=== PATIENT | female | born 1970 | race Caucasian/White ===

== ENCOUNTER 2017-02-08 17:27 | Emergency (ER) | payer OTHER ==
[2017-02-08 17:34] VITALS: BP 155/98; PULSE 68; TEMP 98.2; BMI 38.2
--- NOTE | 2017-02-08 19:31 | PDOC ---
History of Present Illness - General History Source: Patient Exam Limitations: No Limitations - History of Present Illness Initial Comments: 02/08/17 19:46 Patient is a 46 year old female, M1, with a pmhx hypothyroid, kidney stones and GERD who presents to the ED with right flank pain. Patient states that she has been experiencing lower back pain and nausea. Patient states that she had abnormal menses this month, she notes that it began on 02/05 and ended . She notes that it is unusual for her, and she usually has heavy menses. She notes that her last normal menstrual period was 6.19. She denies any urinary symptoms. She denies any vomiting or abdominal pain. PSH - right leg surgery PCP - is not in the area she recently moved from [place] on [address]. <Riana Blair - Last Filed: 02/08/17 19:46> <Virginia Okeefe - Last Filed: 02/09/17 05:05> - General Chief Complaint: Pain, Acute Stated Complaint: NAUSEA Past History <Riana Blair - Last Filed: 02/08/17 19:46> - Past Medical History Kidney Stones: Yes Thyroid Disease: Yes - Psycho/Social/Smoking Cessation Hx Anxiety: No Suicidal Ideation: No Smoking History: Never smoked Hx Alcohol Use: No Drug/Substance Use Hx: No Substance Use Type: None <Virginia Okeefe - Last Filed: 02/09/17 05:05> - Past Medical History Allergies/Adverse Reactions: Allergies Allergy/AdvReac Type Severity Reaction Status Date / Time aspirin Allergy Vomiting Verified 02/08/17 18:04 Home Medications: Ambulatory Orders Cholecalciferol (Vitamin D3) [Vitamin D-400] 400 unit PO DAILY 02/08/17 Levothyroxine [Synthroid -] 150 mcg PO DAILY 02/08/17 Nitrofurantoin Monohyd/M-Cryst [Macrobid -] 100 mg PO BID #14 capsule 02/08/17 Omeprazole Magnesium [Prilosec] 10 mg PO DAILY 02/08/17 Review of Systems - Review of Systems Able to Perform ROS?: Yes Comments:: 02/08/17 19:47 GENERAL/CONSTITUTIONAL: No fever or chills. No weakness. HEAD, EYES, EARS, NOSE AND THROAT: No change in vision. No ear pain or discharge. No sore throat. CARDIOVASCULAR: No chest pain or shortness of breath. RESPIRATORY: No cough, wheezing, or hemoptysis. GASTROINTESTINAL: (+)nausea. No vomiting, diarrhea or constipation. GENITOURINARY: No dysuria, frequency, or change in urination. MUSCULOSKELETAL:(+) right flank pain, back pain. No joint or muscle swelling or pain. No neck pain. SKIN: No rash NEUROLOGIC: No headache, vertigo, loss of consciousness, or change in strength/ sensation. ENDOCRINE: No increased thirst. No abnormal weight change. HEMATOLOGIC/LYMPHATIC: No anemia, easy bleeding, or history of blood clots. ALLERGIC/IMMUNOLOGIC: No hives or skin allergy. <Riana Blair - Last Filed: 02/08/17 19:46> *Physical Exam - Vital Signs Last Vital Signs Temp Pulse Resp BP Pulse Ox 98.2 F 68 20 155/98 100 02/08/17 17:30 02/08/17 17:30 02/08/17 17:30 02/08/17 17:30 02/08/17 17:30 - Physical Exam Comments: 02/08/17 19:47 GENERAL: Awake, alert, and fully oriented, in no acute distress HEAD: No signs of trauma EYES: PERRLA, EOMI, sclera anicteric, conjunctiva clear ENT: Auricles normal inspection, hearing grossly normal, nares patent, oropharynx clear without exudates. Moist mucosa NECK: Normal ROM, supple, no lymphadenopathy, JVD, or masses LUNGS: Breath sounds equal, clear to auscultation bilaterally. No wheezes, and no crackles HEART: Regular rate and rhythm, normal S1 and S2, no murmurs, rubs or gallops ABDOMEN: Soft, nontender, normoactive bowel sounds. No guarding, no rebound. No masses MUSCULOSKELETAL: no CVA tenderness. EXTREMITIES: Normal range of motion, no edema. No clubbing or cyanosis. No cords, erythema, or tenderness NEUROLOGICAL: Cranial nerves II through XII grossly intact. Normal speech, normal gait SKIN: Warm, Dry, normal turgor, no rashes or lesions noted. <Riana Blair - Last Filed: 02/08/17 19:46> - Vital Signs Last Vital Signs Temp Pulse Resp BP Pulse Ox 98.2 F 68 20 155/98 100 02/08/17 17:30 02/08/17 17:30 02/08/17 17:30 02/08/17 17:30 02/08/17 17:30 <Virginia Okeefe - Last Filed: 02/09/17 05:05> Medical Decision Making - Medical Decision Making 02/08/17 19:41 Pt comes with irregular period that lasted from Friday until today. She states usually she has very heavy menses and she wonders what is wrong at this time. She is . She recently moved to [place] from [place] for her boyfriend. Pt tells me that she has a hx of a kidney stone on the right side and that she is having right flank pain and she is wondering if that has anything to do with her irregular menses. We will check a UA and a test. Pt's exam is completely normal. I cannot elicit flank pain on her right side.Pt is afebrile and she denies dysuria. 02/08/17 22:36 Patient Name: Adelaide Serna THIS IS A PRELIMINARY REPORT FROM [facility] IMAGES: 468 EXAM DATE AND TIME: 2017-02-08 21:28:03.0 EXAM: CT ABDOMEN AND PELVIS WITHOUT CONTRAST 4.1 cm bilobed right ovarian cyst. No nephrolithiasis , ureterolithiasis or obstructive uropathy. No bladder calculi. Unremarkable pancreas and gallbladder. No bowel obstruction, colitis, diverticulitis, free fluid or free air. Probable normal appendix. Minimal splenomegaly. Borderline hepatomegaly. Small bone islands bilateral iliac bones. THIS DOCUMENT HAS BEEN ELECTRONICALLY SIGNED 02/09/17 05:04 Patient Name: Adelaide Serna THIS IS A PRELIMINARY REPORT FROM [facility] IMAGES: 64 EXAM DATE AND TIME: 2017-02-08 23:26:48.0 EXAM: ULTRASOUND PELVIS, COMPLETE AND TRANSVAGINAL ULTRASOUND AND DUPLEX SCAN PELVIS, COMPLETE No ovarian torsion. Color flow with appropriate arterial and venous waveforms. Ill -defined heterogeneous dominant follicle or small cyst right ovary, measurements not provided. No free fluid. 2.4 cm uterine fibroid. Endometrial stripe complex 10 mm thick. Unremarkable visualized portion of bladder. THIS DOCUMENT HAS BEEN ELECTRONICALLY SIGNED PT WILL BE DISCHARGED HOME WITH CAMPUS RECRUITER FOLLOW UP FOR OVARIAN CYST. SHE UNDERSTANDS RISK FACTORS FOR OVARIAN TORSION. <Virginia Okeefe - Last Filed: 02/09/17 05:05> *DC/Admit/Observation/Transfer - Attestations Scribe Attestion: 02/08/17 19:49 Documentation prepared by JOBY Mccarthy, acting as director of medical services for Virginia Okeefe MD. <Riana Blair - Last Filed: 02/08/17 19:46> - Discharge Dispostion Admit: No <Virginia Okeefe - Last Filed: 02/09/17 05:05> Diagnosis at time of Disposition: Ovarian cyst - Discharge Dispostion Disposition: HOME Condition at time of disposition: Stable - Prescriptions Prescriptions: Nitrofurantoin Monohyd/M-Cryst [Macrobid -] 100 mg PO BID #14 capsule - Patient Instructions Printed Discharge Instructions: Ovarian Cyst
[2017-02-08 20:01] LABS: URINE APPEARANCE CLEAR; URINE BILIRUBIN NEGATIVE (NEGATIVE); URINE BLOOD 2+ (NEGATIVE); URINE COLOR LTYELLOW; URINE GLUCOSE (UA) NEGATIVE (NEGATIVE); URINE KETONE NEGATIVE (NEGATIVE); URINE LEUK ESTERASE NEGATIVE (NEGATIVE); URINE NITRITE NEGATIVE (NEGATIVE); URINE PROTEIN NEGATIVE (NEGATIVE); URINE UROBILINOGEN NEGATIVE mg/dL (0.2-1.0)
[2017-02-08 20:23] LABS: URINE RBC 1 /hpf (0-3); URINE WBC 1 /hpf (3-5)
[2017-02-08] MEDS ORDERED: NITROFURANTOIN MACROCRYSTAL 50 MG CAPSULE (FP) PO SCH (22:45)
== END 2017-02-09 01:22 | disposition home or self-care (01) ==
LOC: JER 17:27
DX: N83.201 Unspecified ovarian cyst, right side (principal); K21.9 Gastro-esophageal reflux disease without esophagitis; E03.9 Hypothyroidism, unspecified; Z87.442 Personal history of urinary calculi
CPT/HCPCS: 74176; 76856-TC; 81003; 81015; 84703; 99283-25

== ENCOUNTER 2017-04-04 14:15 | Emergency (ER) | payer OTHER ==
[2017-04-04] MEDS ORDERED: IBUPROFEN 600 MG TABLET (FP) PO ONE ×2 (14:45→16:04)
[2017-04-04 14:51] VITALS: BP 154/89; PULSE 85; TEMP 97.9; BMI 38.2
--- NOTE | 2017-04-04 15:13 | PDOC ---
History of Present Illness - General History Source: Patient Exam Limitations: No Limitations - History of Present Illness Initial Comments: 04/04/17 15:27 The patient is a 46 year old female, with a significant past medical history of kidney stones, hypothyroidism, ovarian cysts, and anemia, who presents to the emergency department s/p mechanical fall prior to arrival. The patient reports she was walking on gravel, when she lost her balance, fell and landed with her left hand outstretched. Just prior to the fall, patient reports twisting her right arm, while holding onto her partner in attempt to break the fall. Patient reports associated right elbow pain and mild left knee pain. Patient reports her elbow pain is worse with movement. Patient reports she has been ambulatory since the fall. She reports some abrasions and ecchymosis to the left leg and right elbow. Patient has not taken anything for the pain. She denies any head trauma, LOC, changes in vision, headache, neck/back/wrist/ or shoulder pain. She denies any domestic violence. She denies any chest pain, shortness of breath , diaphoresis, or palpitations. Allergies: NKDA Past Surgical History: None reported. Social History: Non smoker. No ETOH or recreational drug use. <Corrie Jefferson - Last Filed: 04/04/17 15:27> - General History Source: Patient Exam Limitations: No Limitations <Mary Kate Torres - Last Filed: 04/04/17 16:06> - General Chief Complaint: Injury Stated Complaint: FALL Time Seen by Provider: 04/04/17 14:18 Past History <Corrie Jefferson - Last Filed: 04/04/17 15:27> - Past Medical History Anemia: Yes HTN: Yes Kidney Stones: Yes Thyroid Disease: Yes - Suicide/Smoking/Psychosocial Hx Smoking History: Never smoked Have you smoked in the past 12 months: No Information on smoking cessation initiated: No Hx Alcohol Use: No Drug/Substance Use Hx: No Substance Use Type: None <Mary Kate Torres - Last Filed: 04/04/17 16:06> - Past Medical History Allergies/Adverse Reactions: Allergies Allergy/AdvReac Type Severity Reaction Status Date / Time aspirin Allergy Vomiting Verified 04/04/17 14:26 Home Medications: Ambulatory Orders Cholecalciferol (Vitamin D3) [Vitamin D-400] 400 unit PO DAILY 02/08/17 Levothyroxine [Synthroid -] 150 mcg PO DAILY 02/08/17 Omeprazole Magnesium [Prilosec] 10 mg PO DAILY 02/08/17 Ibuprofen [Motrin -] 600 mg PO TID PRN #60 tablet MDD 3 04/04/17 Review of Systems - Review of Systems Able to Perform ROS?: Yes Comments:: 04/04/17 15:27 GENERAL/CONSTITUTIONAL: No fever or chills. No weakness. HEAD, EYES, EARS, NOSE AND THROAT: No change in vision. No ear pain or discharge. No sore throat. CARDIOVASCULAR: No chest pain or shortness of breath. RESPIRATORY: No cough, wheezing, or hemoptysis. GASTROINTESTINAL: No nausea, vomiting, diarrhea or constipation. GENITOURINARY: No dysuria, frequency, or change in urination. MUSCULOSKELETAL: Yes: right elbow pain, left knee pain, abrasion and ecchymosis to the left knee/ right elbow. No other joint or muscle swelling or pain. No neck or back pain. SKIN: No rash NEUROLOGIC: No headache, vertigo, loss of consciousness, or change in strength/ sensation. ENDOCRINE: No increased thirst. No abnormal weight change. HEMATOLOGIC/LYMPHATIC: No anemia, easy bleeding, or history of blood clots. ALLERGIC/IMMUNOLOGIC: No hives or skin allergy. <Corrie Jefferson - Last Filed: 04/04/17 15:27> *Physical Exam - Vital Signs Last Vital Signs Temp Pulse Resp BP Pulse Ox 97.9 F 85 18 154/89 100 04/04/17 14:20 04/04/17 14:20 04/04/17 14:20 04/04/17 14:20 04/04/17 14:20 - Physical Exam Comments: 04/04/17 15:27 GENERAL: Awake, alert, and fully oriented, in no acute distress HEAD: No signs of trauma EYES: PERRLA, EOMI, sclera anicteric, conjunctiva clear ENT: Auricles normal inspection, hearing grossly normal, nares patent. Moist mucosa NECK: Normal ROM, supple, no lymphadenopathy, JVD, or masses LUNGS: Breath sounds equal, clear to auscultation bilaterally. No wheezes, and no crackles HEART: Regular rate and rhythm, normal S1 and S2, no murmurs, rubs or gallops ABDOMEN: Soft, nontender, normoactive bowel sounds. No guarding, no rebound. No masses EXTREMITIES: RUE: right shoulder/wrist FROM, non tender. Right lateral elbow tenderness, but FROM with flex/ex, no laxity. Left knee mild ttp on the anterior knee, but FROM, no ecchymosis, no effusion, no abrasion. Remainder of the extremities normal range of motion, no edema. No clubbing or cyanosis. No cords, erythema, or tenderness. DP/PT pulses 2+ and symmetric. NEUROLOGICAL: GCS 15. Moves all extremities. Normal speech, normal gait SKIN: Warm, Dry, normal turgor, no rashes or lesions noted. VASCULAR: 2+ radial and ulnar pulses <Corrie Jefferson - Last Filed: 04/04/17 15:27> - Vital Signs Last Vital Signs Temp Pulse Resp BP Pulse Ox 97.9 F 85 18 154/89 100 04/04/17 14:20 04/04/17 14:20 04/04/17 14:20 04/04/17 14:20 04/04/17 14:20 <Mary Kate Torres - Last Filed: 04/04/17 16:06> ED Treatment Course - RADIOLOGY Radiology Studies Ordered: Category Date Time Status ELBOW-RIGHT [RAD] Stat Radiology 04/04/17 14:40 Ordered <Mary Kate Torres - Last Filed: 04/04/17 16:06> Medical Decision Making - Medical Decision Making 04/04/17 15:08 46 yo F s/p trip and fall, c/o right elbow pain after trying to break her fall by grabbing her with right arm. twisted elbow in process. landed on left side also c/o left knee pain. no head trauma. happened just prior to arrival. . pain mild worse with elbow movement. shoulder and wrist nontender. no other complaintsl. denies domestic violence. on exam awake alert lungs clear heart rrr no mrg. abd soft nt. head atraumatic. no cervical spin tenderness. ext wwpl. right elbow ttp. from . no eccymosis no deformity. shoulder/ wrist nt from. distally n/v intact. 2 + rad/ ulnar pulses. plan xray pain meds dc ortho followup. <Mary Kate Torres - Last Filed: 04/04/17 16:06> *DC/Admit/Observation/Transfer - Attestations Scribe Attestion: 04/04/17 15:27 Documentation prepared by Corrie Jefferson, acting as medical office secretary for Mary Kate Torres MD. <Corrie Jefferson - Last Filed: 04/04/17 15:27> - Discharge Dispostion Admit: No <Mary Kate Torres - Last Filed: 04/04/17 16:06> Diagnosis at time of Disposition: Elbow injury - Discharge Dispostion Disposition: HOME Condition at time of disposition: Improved - Prescriptions Prescriptions: Ibuprofen [Motrin -] 600 mg PO TID PRN #60 tablet MDD 3 PRN Reason: Pain - Referrals Referrals: Rosendo Dempsey MD [Staff Physician] - - Patient Instructions Printed Discharge Instructions: How to Use a Sling, Elbow Sprain Additional Instructions: you can follow up with orthopedics. call to schedule. return for any problems or concerns. take ibuprofen 600 mg every 8 hrs as needed for pain. you can wear sling for comfort but you should not wear for longer than one week. your xrays of the elbow were negative today for fracture or broken bones.
== END 2017-04-04 16:31 | disposition home or self-care (01) ==
LOC: JER 14:15
DX: S59.902A Unspecified injury of left elbow, initial encounter (principal); E03.9 Hypothyroidism, unspecified; D64.9 Anemia, unspecified; Z87.442 Personal history of urinary calculi
CPT/HCPCS: 73070-TC-RT; 99281-25

== ENCOUNTER 2017-05-27 14:30 | Emergency (ER) | payer OTHER ==
--- NOTE | 2017-05-27 15:24 | PDOC ---
History of Present Illness - History of Present Illness Initial Comments: 05/27/17 15:59 The patient is a 46 year old female, with a significant past medical history of migraines, hypertension, vertigo, and heavy menstrual cycles (takes tranexamic acid as needed), who presents to the emergency department with migraine, nausea , and vertigo since 7AM. The patient reports going to bed feeling well last night, just tired from work, and reports waking up with a frontal headache radiating to the posterior neck at base of her skull. She states the headache does not wrap around, it goes through. She states her migraine feels like her typical migraine, however, denies ever experiencing vertigo and migraine simultaneously. She reports the room is spinning, especially when she moves her head from side to side. She also adds that leaning forward exacerbates the pressure pain to her forehead and eyes. The patient states she is extremely nauseous, however, denies vomiting. The patient states she first thought her symptoms were being caused by her high blood pressure, however, reportedly took her losartan at 9AM without relief of her symptoms. She denies visual or auditory changes with her current symptoms. She states her last migraine was many months ago. She reports seeing a neurologist some time ago in [place], [place] , before moving. She reports being treated with meclizine in the past with mild relief of her symptoms. She denies taking any OTC medications for her symptoms today. She also reports some chills. LMP: started on 05/23 and currently menstruating and taking her tranexamic acid. She denies chest pain, shortness of breath. She denies fever, vomit, diarrhea and constipation. She denies dysuria, frequency, urgency and hematuria. Allergies: aspirin <Tiffani Stoner - Last Filed: 05/27/17 15:59> <Sergei Waterman - Last Filed: 05/27/17 17:31> - General Stated Complaint: NAUSEA/VOMITING Time Seen by Provider: 05/27/17 14:53 Past History <Tiffani Stoner - Last Filed: 05/27/17 15:59> - Past Medical History Anemia: Yes HTN: Yes Kidney Stones: Yes Thyroid Disease: Yes - Suicide/Smoking/Psychosocial Hx Smoking History: Never smoked Have you smoked in the past 12 months: No Hx Alcohol Use: No Drug/Substance Use Hx: No Substance Use Type: None <Sergei Waterman - Last Filed: 05/27/17 17:31> - Past Medical History Allergies/Adverse Reactions: Allergies Allergy/AdvReac Type Severity Reaction Status Date / Time aspirin Allergy Vomiting Verified 05/27/17 16:13 Home Medications: Ambulatory Orders Cholecalciferol (Vitamin D3) [Vitamin D-400] 400 unit PO DAILY 02/08/17 Levothyroxine [Synthroid -] 150 mcg PO DAILY 02/08/17 Omeprazole Magnesium [Prilosec] 10 mg PO DAILY 02/08/17 Ibuprofen [Motrin -] 600 mg PO TID PRN #60 tablet MDD 3 04/04/17 Meclizine HCl [Antivert -] 50 mg PO TID PRN #21 tablet 05/27/17 Review of Systems - Review of Systems Constitutional: No: Chills, Fever HEENTM: No: Recent change in vision ABD/GI: Yes: Nausea, Vomiting. No: Diarrhea Neurological: Yes: Headache, Dizziness. No: Weakness All Other Systems: Reviewed and Negative <Sergei Waterman - Last Filed: 05/27/17 17:31> *Physical Exam - Physical Exam Comments: 05/27/17 15:59 GENERAL: The patient is awake, alert, and fully oriented, in no acute distress. HEAD: Normal with no signs of trauma. EYES: Pupils equal, round and reactive to light, extraocular movements intact, sclera anicteric, conjunctiva clear with no pallor. ENT: Ears normal, nares patent, oropharynx clear without exudates. Moist mucous membranes. NECK: Normal range of motion, supple without lymphadenopathy, JVD, or masses. LUNGS: Breath sounds equal, clear to auscultation bilaterally. No wheeze/ crackles. HEART: Regular rate and rhythm, normal S1 and S2 without murmur or rub. ABDOMEN: Soft/nontender/nondistended. BS wnl. No guarding or rebound. No palpable masses. No hepatosplenomegaly. EXTREMITIES: Normal range of motion, no edema. No clubbing or cyanosis. No cords, erythema, or tenderness. NEUROLOGICAL: Cranial nerves II through XII grossly intact. Normal speech, normal gait. PSYCH: Normal mood, normal affect. SKIN: Warm, Dry, normal turgor, no rashes or lesions noted. <Tiffani Stoner - Last Filed: 05/27/17 15:59> Heart Score/ECG Review #1 ECG reviewed & interpreted by me at: 14:46 General ECG Interpretation: Sinus Rhythm, Normal Rate (71), Normal Intervals ( qtc 434), No acute ischemic changes <Sergei Waterman - Last Filed: 05/27/17 17:31> Medical Decision Making - Medical Decision Making 05/27/17 16:11 A portion of this note was documented by scribe services under my direction. I have reviewed the details of the note, within reason, and agree with the documentation with the following case summary and management plan written by me. 46-year-old female with history of migraines off daily medications for several years presents with persistent headache today. Patient was in her usual state of normal health, awoke around 5 AM with mild frontal headache, patient took her blood pressure medication presuming it was secondary to hypertension, went back to sleep and awoke around 10 AM with a more severe headache that was frontal and occipital, associated with some nausea/vomiting, and associated with positional vertigo. No vision change or speech change or focal deficit, presents for evaluation. Headache is similar to past migraine syndromes, only slightly worsened by the occipital headache and vertigo, but she did have a presentation similar to this in June 2016 when she was seen in an outside emergency department and an MRI was performed and was normal. Her symptoms subsequently resolved with her headache and was attributed to a migraine at that time as well. Vital signs within normal limits, systolic blood pressure 140 Alert, ambulating No focal sinus tenderness, pupils equal round reactive to light, extraocular movements are intact Neck is supple NEURO: Mental status: The patient is alert and oriented x3. Cranial nerves: Cranial nerves II through XII are intact Motor: The upper extremities are 5 over 5 in all muscle groups. The lower extremities are 5 over 5 in all muscle groups. No pronator drift. Sensation: Sensation is intact to light touch throughout. Cerebellar: Iktqar-[id number]-udhe is normal in both upper extremities. Heel-knee- mcknight is normal in both lower extremities. Reflexes: 2+ and symmetric in the upper and lower extremities. Gait: Normal. Heel and toe walking are normal. Tandem gait is normal. 46-year-old female with migraine exacerbation, neurologically intact without red flags on history or physical exam. Blood pressure is under control, MRI in the past under similar circumstances was normal. Treatment with IV fluids, Reglan Treat vertigo with trial of meclizine and Valium Reassess, no indication for emergent imaging at this time 05/27/17 16:47 Symptoms improved after reglan/meclizine/valium, slight residual headache. confirmed asa allergy mostly just stomach upset from pills, not a true allergy. Will give toradol for residual headache and reassess. 05/27/17 17:25 afebrile, VSS. sxs markedly improved/resolved. Now sitting up in stretcher smiling, ambulating to restroom, neuro intact, headache resolved, dizziness resolved. Never received toradol, sxs improved with reglan/ivf/meclizine/valium. Agrees with d/c plan, will f/u with Neurology. Will give rx for meclizine as needed. Understands return criteria. <Sergei Waterman - Last Filed: 05/27/17 17:31> *DC/Admit/Observation/Transfer - Attestations Scribe Attestion: 05/27/17 16:00 Documentation prepared by Tiffani Stoner, acting as medical malpractice paralegal for Sergei Waterman MD, <Tiffani Stoner - Last Filed: 05/27/17 15:59> <Sergei aWterman - Last Filed: 05/27/17 17:31> Diagnosis at time of Disposition: Migraine Qualifiers: Migraine type: unspecified Status migrainosus presence: without status migrainosus Intractability: not intractable Qualified Code(s): G43.909 - Migraine, unspecified, not intractable, without status migrainosus - Discharge Dispostion Disposition: HOME Condition at time of disposition: Improved - Prescriptions Prescriptions: Meclizine HCl [Antivert -] 50 mg PO TID PRN #21 tablet PRN Reason: Vertigo - Referrals Referrals: Ross Draper MD [Staff Physician] - - Patient Instructions Printed Discharge Instructions: DI for Migraine Additional Instructions: Activity as tolerated. Stay hydrated. Tylenol 1000 mg every 8 hours and/or ibuprofen 600 mg every 8 hours as needed for pain. Can take over the counter Excedrin also as needed. Continue your medications as previously prescribed by your physician. Consider speaking to your doctor about restarting your daily migraine medications. Take meclizine as prescribed as needed for any persistent dizziness. You should follow up with your primary doctor and a neurologist (consider calling Dr. Draper for an appointment) as soon as possible regarding today's emergency department visit. Return to the emergency department for any new or concerning symptoms, particularly persistent or worsening headache, vision change or speech change or focal weakness, fever or chills, confusion, persistent dizziness or vomiting.
[2017-05-27] MEDS ORDERED: METOCLOPRAMIDE HCL INJECTION 10 MG/2 ML VIAL IVPB ONE (15:27)
[2017-05-27] MEDS ORDERED: SODIUM CHLORIDE 1,000 ML IV ONE (15:27)
[2017-05-27] MEDS ORDERED: MECLIZINE HCL 25 MG TABLET (FP) PO ONE (15:29)
[2017-05-27] MEDS ORDERED: diazePAM 2 MG TABLET PO ONE (15:29)
[2017-05-27] MEDS ORDERED: diazePAM 2 MG TABLET ONE (15:47)
[2017-05-27] MEDS ORDERED: MECLIZINE HCL 25 MG TABLET (FP) ONE (15:48)
[2017-05-27] MEDS ORDERED: METOCLOPRAMIDE HCL INJECTION 10 MG/2 ML VIAL ONE (15:48)
[2017-05-27] MEDS ORDERED: KETOROLAC TROMETHAMINE 30 MG/1 ML VIAL IVPUSH ONE (16:33)
[2017-05-27 17:31] VITALS: TEMP 98.8
[2017-05-27 17:34] VITALS: BP 146/80; PULSE 80; BMI 38.2
== END 2017-05-27 17:42 | disposition home or self-care (01) ==
LOC: JER 14:30
PROC: 3E033GC Introduction of Other Therapeutic Substance into Peripheral Vein, Percutaneous Approach (ICD-10-PCS; principal; 2017-05-27)
DX: G43.909 Migraine, unspecified, not intractable, without status migrainosus (principal); I10 Essential (primary) hypertension; E03.9 Hypothyroidism, unspecified; N92.0 Excessive and frequent menstruation with regular cycle
CPT/HCPCS: 84703; 99282-25

== ENCOUNTER 2017-09-15 23:30 | Emergency (ER) | payer OTHER ==
[2017-09-15 23:50] VITALS: TEMP 97.7; BMI 39.1
--- NOTE | 2017-09-16 00:39 | PDOC ---
History of Present Illness - General Chief Complaint: Pain Stated Complaint: ABD PAIN Time Seen by Provider: 09/16/17 00:37 - History of Present Illness Initial Comments: 09/16/17 01:22 46-year-old female with one-week history of right sided pain and periumbilical pain with worsening pain today with associated nausea. Denies flank pain, dysuria reports oliguria, denies fever chills, vomiting, diarrhea. Patient reports that her LMP was 1 week ago with vaginal spotting. Past medical history: Ovarian cyst Past History - Past Medical History Allergies/Adverse Reactions: Allergies Allergy/AdvReac Type Severity Reaction Status Date / Time aspirin Allergy Vomiting Verified 09/15/17 23:47 Home Medications: Ambulatory Orders Cholecalciferol (Vitamin D3) [Vitamin D-400] 400 unit PO DAILY 02/08/17 Levothyroxine [Synthroid -] 150 mcg PO DAILY 02/08/17 Omeprazole Magnesium [Prilosec] 10 mg PO DAILY 02/08/17 Ibuprofen [Motrin -] 600 mg PO TID PRN #60 tablet MDD 3 04/04/17 Meclizine HCl [Antivert -] 50 mg PO TID PRN #21 tablet 05/27/17 Sulfamethoxazole/Trimethoprim [Bactrim Ds -] 1 tab PO BID #6 tablet 09/16/17 Anemia: Yes COPD: No HTN: Yes Kidney Stones: Yes Thyroid Disease: Yes (Hypothyroid) Other medical history: ovarian cyst - Suicide/Smoking/Psychosocial Hx Smoking History: Never smoked Have you smoked in the past 12 months: No Information on smoking cessation initiated: No Hx Alcohol Use: No Drug/Substance Use Hx: No Substance Use Type: None Review of Systems - Review of Systems Able to Perform ROS?: Yes Is the patient limited Bengali proficient: No Constitutional: No: Symptoms Reported, See HPI, Chills, Diaphoresis, Fever, Loss of Appetite, Malaise, Night Sweats, Weakness, Weight Stable, Unintentional Wgt. Loss, Unexplained wgt Loss, Other ABD/GI: Yes: Nausea, Abdominal cramping. No: Symptoms Reported, See HPI, Abdominal Distended, Abd. Pain w/ defecation, Blood Streaked Bowels, Constipated , Diarrhea, Difficulty Swallowing, Poor Appetite, Poor Fluid Intake, Rectal Bleeding, Vomiting, Indigestion, Tarry Stools, Other : Yes: Urgency, Other (vaginal bleeding). No: Symptoms Reported, See HPI, Burning, Dysuria, Discharge, Frequency, Flank Pain, Hematuria, Incontinence, Pain, Testicular Mass, Testicular Swelling, Lesions, Testicular Pain *Physical Exam - Vital Signs Last Vital Signs Temp Pulse Resp BP Pulse Ox 97.7 F 86 20 120/78 100 09/15/17 23:47 09/15/17 23:47 09/15/17 23:47 09/15/17 23:47 09/15/17 23:47 - Physical Exam General Appearance: Yes: Appropriately Dressed HEENT: positive: Normal ENT Inspection Respiratory/Chest: positive: Lungs Clear, Normal Breath Sounds Cardiovascular: positive: Regular Rhythm, Regular Rate Gastrointestinal/Abdominal: positive: Normal Bowel Sounds, Tender (Perumbilical / RLQ), Soft Musculoskeletal: positive: Normal Inspection. negative: CVA Tenderness Extremity: positive: Normal Capillary Refill, Normal Inspection, Normal Range of Motion Integumentary: positive: Normal Color, Dry, Warm Neurologic: positive: Fully Oriented, Alert, Normal Mood/Affect ED Treatment Course - LABORATORY CBC & Chemistry Diagram: 09/16/17 01:05 09/16/17 01:05 Progress Note - Progress Note Progress Note: A: Abdominal pain P; CBC CMP CTAP US; 2.3 cm right ovarian cyst. ivf Zofran *DC/Admit/Observation/Transfer Diagnosis at time of Disposition: Ovarian cyst Qualifiers: Laterality: right Qualified Code(s): N83.201 - Unspecified ovarian cyst, right side UTI (urinary tract infection) Qualifiers: Urinary tract infection type: acute cystitis Hematuria presence: without hematuria Qualified Code(s): N30.00 - Acute cystitis without hematuria - Discharge Dispostion Disposition: HOME - Prescriptions Prescriptions: Sulfamethoxazole/Trimethoprim [Bactrim Ds -] 1 tab PO BID #6 tablet - Referrals - Patient Instructions Printed Discharge Instructions: Ovarian Cyst Additional Instructions: follow up with Manipulative Therapy Specialist. take ibuprofen every 6 hours as needed for pain bactrim as prescribed. drink plenty of fluids. - Post Discharge Activity Forms/Work/School Notes: Back to Work
[2017-09-16] MEDS ORDERED: SODIUM CHLORIDE 1,000 ML IV STA (01:20)
[2017-09-16] MEDS ORDERED: ONDANSETRON 4 MG/2 ML VIAL IVPUSH ONE (01:20)
[2017-09-16 01:27] LABS: EOS % 0.1 % (0-4.5); HEMATOCRIT 32.7 % (32.4-45.2); HEMOGLOBIN 11.3 GM/dL (10.7-15.3); LYMPH % 24.5 % (8-40); MCH 27.8 pg (25.7-33.7); MCHC 34.6 g/dl (32.0-36.0); MEAN CELL VOLUME 80.4 fl (80-96); MEAN PLT VOLUME 7.2 fl (7.5-11.1); MONO % 7.9 % (3.8-10.2); NEUT % 66.5 % (42.8-82.8); PLATELET COUNT 359 K/MM3 (134-434); RBC 4.06 M/mm3 (3.60-5.2); RDW 14.1 % (11.6-15.6); WHITE BLOOD COUNT 8.4 K/mm3 (4.0-10.0)
[2017-09-16 01:32] LABS: URINE APPEARANCE CLOUDY; URINE BILIRUBIN NEGATIVE (NEGATIVE); URINE BLOOD 2+ (NEGATIVE); URINE COLOR YELLOW; URINE GLUCOSE (UA) NEGATIVE (NEGATIVE); URINE KETONE NEGATIVE (NEGATIVE); URINE LEUK ESTERASE 1+ (NEGATIVE); URINE NITRITE NEGATIVE (NEGATIVE); URINE PROTEIN NEGATIVE (NEGATIVE)
[2017-09-16 01:44] LABS: EPI CELLS MANY /HPF (FEW); URINE BACTERIA RARE /hpf (NONE SEEN); URINE HYALINE CAST 5 /lpf; URINE MUCUS MANY
[2017-09-16 02:26] LABS: ALBUMIN 3.6 g/dl (3.4-5.0); ANION GAP 11 (8-16); BLOOD UREA NITROGEN 18 mg/dL (7-18); CALCIUM 8.5 mg/dL (8.5-10.1); CHLORIDE 107 mmol/L (98-107); CO2 22 mmol/L (21-32); CREATININE 0.8 mg/dL (0.55-1.02); GLUCOSE,RANDOM 96 mg/dL (74-106); LIPASE 104 U/L (73-393); POTASSIUM 3.8 mmol/L (3.5-5.1); SGOT/AST 11 U/L (15-37); SGPT/ALT 13 U/L (12-78); SODIUM 140 mmol/L (136-145)
[2017-09-16 02:28] LABS: ALK PHOS 87 U/L (45-117); BILIRUBIN,TOTAL 0.6 mg/dL (0.2-1.0); TOT PROT 7.1 g/dl (6.4-8.2)
[2017-09-16] MEDS ORDERED: ONDANSETRON 4 MG/2 ML VIAL ONE (02:53)
[2017-09-16 06:29] VITALS: BP 114/83; PULSE 79
--- NOTE | 2017-09-17 10:53 | EKG ---
Test Reason : Blood Pressure : / mmHG Vent. Rate : 067 BPM Atrial Rate : 067 BPM P-R Int : 138 ms QRS Dur : 078 ms QT Int : 404 ms P-R-T Axes : 055 063 068 degrees QTc Int : 426 ms NORMAL SINUS RHYTHM NORMAL ECG WHEN COMPARED WITH ECG OF 27-MAY-2017 14:46, NO SIGNIFICANT CHANGE WAS FOUND Confirmed by REMINGTON FARFAN MD ([id number]) on 09/17/2017 10:53:04 AM Referred By: Confirmed By:REMINGTON FARFAN MD
== END 2017-09-16 06:41 | disposition home or self-care (01) ==
LOC: JER 23:30
PROC: 3E033GC Introduction of Other Therapeutic Substance into Peripheral Vein, Percutaneous Approach (ICD-10-PCS; principal; 2017-09-15)
PROC: 3E0337Z Introduction of Electrolytic and Water Balance Substance into Peripheral Vein, Percutaneous Approach (ICD-10-PCS; 2017-09-15)
DX: N83.201 Unspecified ovarian cyst, right side (principal); N30.00 Acute cystitis without hematuria; I10 Essential (primary) hypertension; E03.9 Hypothyroidism, unspecified; Z87.442 Personal history of urinary calculi
CPT/HCPCS: 36415; 74177-TC; 76830-TC; 80053; 81003; 81015; 83690; 84703; 85025; 93005; 93010; 99283-25

== ENCOUNTER 2017-11-28 22:18 | Emergency (ER) | payer OTHER ==
[2017-11-28 22:27] VITALS: BP 138/82; PULSE 82; TEMP 98; BMI 38.2
[2017-11-28] MEDS ORDERED: ACETAMINOPHEN 500 MG TABLET (FP) PO ONE (22:43)
--- NOTE | 2017-11-28 22:44 | PDOC ---
History of Present Illness - General Chief Complaint: Sore Throat Stated Complaint: SORE THROAT Time Seen by Provider: 11/28/17 22:35 History Source: Patient Exam Limitations: No Limitations - History of Present Illness Initial Comments: 11/28/17 23:12 46-year-old woman without significant past medical history presents emergency Department with 2 days of sore throat, fevers. 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 Patient denies any cough, difficulty swallowing, nausea , vomiting, headaches, dizziness. Past History - Past Medical History Allergies/Adverse Reactions: Allergies Allergy/AdvReac Type Severity Reaction Status Date / Time aspirin Allergy Vomiting Verified 09/15/17 23:47 Home Medications: Ambulatory Orders Cholecalciferol (Vitamin D3) [Vitamin D-400] 400 unit PO DAILY 02/08/17 Levothyroxine [Synthroid -] 150 mcg PO DAILY 02/08/17 Omeprazole Magnesium [Prilosec] 10 mg PO DAILY 02/08/17 Ibuprofen [Motrin -] 600 mg PO TID PRN #60 tablet MDD 3 04/04/17 Meclizine HCl [Antivert -] 50 mg PO TID PRN #21 tablet 05/27/17 Sulfamethoxazole/Trimethoprim [Bactrim Ds -] 1 tab PO BID #6 tablet 09/16/17 Anemia: Yes COPD: No HTN: Yes Kidney Stones: Yes Thyroid Disease: Yes (Hypothyroid) - Suicide/Smoking/Psychosocial Hx Smoking History: Never smoked Have you smoked in the past 12 months: No Information on smoking cessation initiated: No Hx Alcohol Use: No Drug/Substance Use Hx: No Substance Use Type: None Review of Systems - Review of Systems Able to Perform ROS?: Yes Is the patient limited Hebrew proficient: No Constitutional: No: Symptoms Reported HEENTM: Yes: See HPI Respiratory: No: Symptoms reported Cardiac (ROS): No: Symptoms Reported ABD/GI: No: Symptoms Reported : No: Symptoms Reported Musculoskeletal: No: Symptoms Reported Integumentary: No: Symptoms Reported Neurological: No: Symptoms reported Endocrine: No: Symptoms Reported *Physical Exam - Vital Signs Last Vital Signs Temp Pulse Resp BP Pulse Ox 98.0 F 82 18 138/82 100 11/28/17 22:25 11/28/17 22:25 11/28/17 22:25 11/28/17 22:25 11/28/17 22:25 - Physical Exam General Appearance: Yes: Appropriately Dressed. No: Apparent Distress HEENT: positive: EOMI, ASHLEY, Normal Voice, TMs Normal, Pharyngeal Erythema, Tonsillar Erythema, Other (Cobblestoning noted to the posterior oropharynx). negative: Tonsillar Exudate Neck: positive: Trachea midline, Lymphadenopathy (R), Lymphadenopathy (L). negative: Tender Respiratory/Chest: positive: Lungs Clear, Normal Breath Sounds. negative: Respiratory Distress, Accessory Muscle Use Cardiovascular: positive: Regular Rhythm, Regular Rate. negative: Murmur Gastrointestinal/Abdominal: positive: Normal Bowel Sounds, Soft. negative: Tender Musculoskeletal: positive: Normal Inspection. negative: CVA Tenderness Extremity: positive: Normal Inspection Integumentary: positive: Normal Color, Dry, Warm Neurologic: positive: Alert, Normal Response Medical Decision Making - Medical Decision Making 11/28/17 23:58 A/P: 46-year-old woman without significant past medical history with sore throat for 2 days. Pharyngeal and tonsillar erythema noted. No exudates present Cobblestoning noted in the posterior oropharynx Nontender anterior cervical lymphadenopathy present Lungs clear to auscultation bilaterally Given multiple sick contacts with streptococcal pharyngitis, I will obtain rapid strep testing. Strep testing is negative. I will discharge the patient home with recommendations for symptomatic treatment. *DC/Admit/Observation/Transfer Diagnosis at time of Disposition: Pharyngitis Qualifiers: Pharyngitis/tonsillitis etiology: unspecified etiology Qualified Code(s): J02.9 - Acute pharyngitis, unspecified - Discharge Dispostion Disposition: HOME Condition at time of disposition: Good - Referrals Referrals: Nilson Xavier MD [Primary Care Provider] - - Patient Instructions Printed Discharge Instructions: DI for Viral Pharyngitis Additional Instructions: Rest, drink lots of fluids: Teas, water, soups, Pedialyte Saltwater gargles Steamy showers/seem to face break up mucus Avoid contact with others until fevers and cough resolved Lots of handwashing and good hygiene Continue [id number] medications for symptomatic relief Tylenol or Motrin for fever and pain Followup with private physician in one to 2 days as needed Return to emergency department for worsened symptoms, fevers, dehydration - Post Discharge Activity Forms/Work/School Notes: Back to Work
[2017-11-28] MEDS ORDERED: ACETAMINOPHEN 325 MG TABLET (FP) ONE (22:59)
== END 2017-11-29 00:30 | disposition home or self-care (01) ==
LOC: JER 22:18
DX: J02.9 Acute pharyngitis, unspecified (principal); I10 Essential (primary) hypertension; E03.9 Hypothyroidism, unspecified; Z86.2 Personal history of diseases of the blood and blood-forming organs and certain disorders involving the immune mechanism
CPT/HCPCS: 87070; 87430; 99282-25

== ENCOUNTER 2018-05-05 06:06 | Day surgery (SDC) | payer OTHER ==
[2018-05-01 13:29] VITALS: BMI 38.2
--- NOTE | 2018-05-05 07:23 | HP ---
History & Physical Update - History History: No Change - Physical Physical: No Change - Assessment Assessment: No Change - Plan Plan: No Change (Unchanged from 04/15/18 Consent signed and witnessed)
[2018-05-05] MEDS ORDERED: SUCCINYLCHOLINE CHLORIDE 200 MG/10 ML VIAL ONE (07:30)
[2018-05-05] MEDS ORDERED: PROPOFOL 20 ML ONE ×3 (07:30→08:28)
[2018-05-05] MEDS ORDERED: MIDAZOLAM HCL 2 MG/2 ML SINGLE DOSE VIAL ONE (07:30)
[2018-05-05] MEDS ORDERED: DEXAMETHASONE SOD PHOSPHATE 4 MG/1 ML VIAL ONE (07:31)
[2018-05-05] MEDS ORDERED: LIDOCAINE HCL/PF 2% SDV 5ML VIAL ONE (07:31)
[2018-05-05] MEDS ORDERED: IBUPROFEN 600 MG TABLET (FP) PO PRN (08:51)
[2018-05-05] MEDS ORDERED: ONDANSETRON 4 MG/2 ML VIAL IVPUSH PRN (08:51)
[2018-05-05] MEDS ORDERED: IBUPROFEN 800 MG/8 ML IJ IVPB PRN (08:51)
[2018-05-05] MEDS ORDERED: oxyCODONE HCL 5 MG TABLET PO PRN ×2 (08:51→12:21)
--- NOTE | 2018-05-05 08:51 | OP ---
Operative Note - Note: Operative Date: 05/05/18 Pre-Operative Diagnosis: 47yo P0 with morbid obesity, metrorrhagia; not interested in further fertility Operation: Hysteroscopy/Polypectomy/Endometrial ablation Findings: 1. Anterior uterine wall small Wen polyp 2. Successful completed HTA ablation cycle Post-Operative Diagnosis: Same as Pre-op Surgeon: Desiree Wheatley Anesthesiologist/YOUTH DEVELOPMENT SPECIALIST: Bird Garzon Anesthesia: MAC Specimens Removed: 1. Endometrial curettings with polyp Estimated Blood Loss (mls): 10 Drains & Tubes with Location: Fluid defficit - 0cc Drains, Volume Out (mls): 100 Fluid Volume Replaced (mls): 500 Operative Report Dictated: Yes
[2018-05-05] MEDS ORDERED: ACETAMINOPHEN INJECTION 100 ML IVPB ONE (09:00)
[2018-05-05] MEDS ORDERED: ELECTROLYTE-148 SOLN 1,000 ML IV SCH (09:00)
[2018-05-05] MEDS ORDERED: ACETAMINOPHEN 1000 MG/100 ML VIAL (NON FORMULARY) IVPB ONE (09:15)
[2018-05-05] MEDS ORDERED: oxyCODONE HCL 5 MG TABLET ONE (09:29)
[2018-05-05 10:01] VITALS: TEMP 97.8
[2018-05-05] MEDS ORDERED: LACTATED RINGERS SOLUTION 1,000 ML IV SCH (12:30)
[2018-05-05 13:22] VITALS: BP 119/77; PULSE 65
--- NOTE | 2018-05-05 18:03 | OP ---
DATE OF OPERATION: 05/05/2018 PREOPERATIVE DIAGNOSIS: A 47-year-old para 0 with morbid obesity and metrorrhagia. Not interested in further fertility. OPERATION: Hysteroscopy, polypectomy, endometrial ablation. FINDINGS: Anterior uterine wall small sessile polyp. Removed by curettage successfully completed HTA ablation. POSTOPERATIVE DIAGNOSIS: A 47-year-old para 0 with morbid obesity and metrorrhagia. Not interested in further fertility. SURGEON: Desiree Wheatley M.D. ANESTHESIOLOGIST: Bird Garzon CRNA ANESTHESIA: MAC SPECIMENS REMOVED: Endometrial curettings with polyp. DESCRIPTION OF OPERATIVE PROCEDURE: After ensuring informed consent, patient was brought to the operating room, where she was placed in dorsal lithotomy position. Perineum was prepped and draped in sterile fashion. The Symphion hysteroscope was assembled, light balanced, and primed. The cervix was visualized by placing Coley retractors into the vagina. Anterior cervical lip was articulated with single-toothed tenaculum and cervix was gradually dilated to accommodate 6 mm hysteroscope. The hysteroscope was introduced into the uterus without any difficulty with good visualization of bilateral ostia. There were no obvious pedunculated polyps except for sessile polyp in the anterior uterine wall. Symphion hysteroscope removed. The sharp curettage performed. Subsequently HTA device assembled and introduced into the uterus without any difficulty. Successful 10-minute hydrothermal ablation cycle was performed and appropriate 2-minute cooling cycle performed without any difficulty. Excellent blanching of the endometrium noted. No further uterine pathology noted. Estimated blood loss 10 mL. Fluid deficit 0 mL. Urine output 100 mL. Sent for urine culture. Patient received 500 mL of IV fluid. All instruments and sponges removed from the vagina and count was accurate x2. Patient tolerated procedure well and was brought to the recovery room in stable condition. Ayan [id number] MTDD
--- NOTE | 2018-05-06 18:14 | PATH ---
Surgical Pathology Report Patient Name: SUPRIYA OTERO [facility]. Rec. #: [id number] /Age/Gender: 1970 (Age: 47) / F Account: [id number] Location: [facility] Taken: 05/05/2018 Received: 05/05/2018 Reported: 05/06/2018 Physicians: Desiree Wheatley M.D. Specimen(s) Received ENDOMETRIAL CURETTINGS Clinical History Menorrhagia, excessive infrequent menstruation with regular Final Diagnosis ENDOMETRIAL CURETTINGS, DILATION AND CURETTAGE: FRAGMENTS OF ENDOMETRIAL POLYP, PROLIFERATIVE ENDOMETRIUM, AND BENIGN CERVICAL TISSUE Electronically Signed Maddy Lin M.D. Gross Description Received in formalin labeled "endometrial curetting," is 3.7 x 3.5 x 0.4 cm aggregate of king-red soft tissue fragments admixed with blood clot. The formalin is filtered and the specimen is entirely submitted in 3 cassettes. DL/05/05/2018 saudi/05/05/2018
== END 2018-05-05 12:10 | disposition home or self-care (01) ==
LOC: JASU-SURG 06:06
PROVIDERS: ATTEND Obstetrics & Gynecology
PROC: 0UDB7ZX Extraction of Endometrium, Via Natural or Artificial Opening, Diagnostic (ICD-10-PCS; 2018-05-05)
PROC: 0U5B8ZZ Destruction of Endometrium, Via Natural or Artificial Opening Endoscopic (ICD-10-PCS; principal; 2018-05-05 07:30)
PROC: 0UDB7ZX Extraction of Endometrium, Via Natural or Artificial Opening, Diagnostic (ICD-10-PCS; 2018-05-05 07:30)
PROC: 0UB97ZX Excision of Uterus, Via Natural or Artificial Opening, Diagnostic (ICD-10-PCS; 2018-05-05 07:30)
DX: N92.1 Excessive and frequent menstruation with irregular cycle (principal); E66.01 Morbid (severe) obesity due to excess calories; N84.0 Polyp of corpus uteri
CPT/HCPCS: 84703; 88305-TC; 94760; J0131

== ENCOUNTER 2018-10-04 23:24 | Emergency (ER) | payer OTHER | END 2018-10-05 04:22 | disposition home or self-care (01) | LOC: JER 23:24 ==

== ENCOUNTER 2018-12-21 00:16 | Emergency (ER) | payer OTHER | END 2018-12-21 03:23 | disposition home or self-care (01) | LOC: JER 00:16 ==

== ENCOUNTER 2019-03-25 06:42 | Emergency (ER) | payer OTHER ==
[2019-03-25 07:15] VITALS: BP 141/83; PULSE 75; TEMP 97.9; BMI 41.2
[2019-03-25] MEDS ORDERED: SODIUM CHLORIDE 1,000 ML IV STA (07:47)
[2019-03-25] MEDS ORDERED: KETOROLAC TROMETHAMINE 15 MG/ML VIAL IVPUSH ONE (07:49)
--- NOTE | 2019-03-25 08:15 | PDOC ---
History of Present Illness - General Chief Complaint: Pain, Acute Stated Complaint: RIGHT LOWER SIDE PAin Time Seen by Provider: 03/25/19 07:32 History Source: Patient Exam Limitations: No Limitations - History of Present Illness Initial Comments: 03/25/19 08:09 48 yo F w/ a h/o HTN, thyroid disease, nephrolithiasis, comes in c/o sudden onset of L flank pain yesterday, which comes and goes. Also c/o frequency on urination and nausea. (+)watery non bloody diarrhea for 2 days (3-4 episodes a day), no diarrhea since she took the imodium yesterday. No burning/pain on urination, no vaginal symptoms. 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 Denies h/o diverticulitis/colitis. No recent antibiotic use. 03/25/19 08:18 Past History - Past Medical History Allergies/Adverse Reactions: Allergies Allergy/AdvReac Type Severity Reaction Status Date / Time aspirin Allergy Vomiting Verified 03/25/19 07:16 Home Medications: Ambulatory Orders Levothyroxine [Synthroid -] 150 mcg PO DAILY 02/08/17 Losartan Potassium 50 mg PO ASDIR 01/11/18 Topiramate [Topamax] 50 mg PO BID 05/01/18 Cefpodoxime Proxetil [Vantin -] 200 mg PO Q12H #20 tablet 03/25/19 Anemia: Yes COPD: No HTN: Yes Kidney Stones: Yes Thyroid Disease: Yes (Hypothyroid) - Surgical History Orthopedic Surgery: Yes (lt leg fib/tib fx) - Immunization History Immunization Up to Date: Yes - Suicide/Smoking/Psychosocial Hx Smoking History: Never smoked Have you smoked in the past 12 months: No If you are a former smoker, when did you quit?: 20 years ago Hx Alcohol Use: No Drug/Substance Use Hx: No Substance Use Type: None Hx Substance Use Treatment: No Review of Systems - Review of Systems Able to Perform ROS?: Yes Constitutional: No: Chills, Fever, Malaise, Night Sweats HEENTM: No: Eye Pain, Recent change in vision, Throat Pain Respiratory: No: Cough, Shortness of Breath Cardiac (ROS): No: Chest Pain, Palpitations, Chest Tightness ABD/GI: Yes: Diarrhea, Nausea, Abdominal cramping. No: Vomiting : Yes: Frequency, Flank Pain. No: Dysuria, Hematuria Musculoskeletal: No: Back Pain Integumentary: No: Rash Neurological: No: Headache, Numbness, Dizziness Psychiatric: No: Change in Appetite Endocrine: No: Unexplained Weight Loss *Physical Exam - Vital Signs Last Vital Signs Temp Pulse Resp BP Pulse Ox 97.9 F 75 18 141/83 97 03/25/19 07:13 03/25/19 07:13 03/25/19 07:13 03/25/19 07:13 03/25/19 07:13 - Physical Exam General Appearance: Yes: Nourished. No: Apparent Distress HEENT: positive: ASHLEY, Normal ENT Inspection, Normal Voice. negative: Pale Conjunctivae, Scleral Icterus (R), Scleral Icterus (L) Neck: positive: Supple. negative: Decreased range of motion, Tender midline Respiratory/Chest: positive: Lungs Clear, Normal Breath Sounds. negative: Respiratory Distress, Accessory Muscle Use Cardiovascular: positive: Regular Rhythm, Regular Rate Gastrointestinal/Abdominal: positive: Normal Bowel Sounds, Tender (LLQ pain, L CVA tenderness), Soft. negative: Guarding, Rebound Musculoskeletal: positive: Normal Inspection. negative: CVA Tenderness, Decreased Range of Motion Extremity: positive: Normal Capillary Refill, Normal Inspection, Normal Range of Motion. negative: Tender, Pedal Edema Integumentary: positive: Normal Color, Dry. negative: Jaundice, Rash Neurologic: positive: Fully Oriented, Alert, Normal Mood/Affect ED Treatment Course - LABORATORY CBC & Chemistry Diagram: 03/25/19 08:30 03/25/19 08:30 Medical Decision Making - Medical Decision Making 03/25/19 08:15 48 yo F w/ L flank/LLQ tenderness, w/ nausea/diarrhea and frequency on urination. R/O kidney stones Vs diverticulitis. Will line and lab, check Urine, do a CT abdomen pelvis R/O stone Vs GI pathology. 03/25/19 11:06 Pt says that she feels better, pending imaging results. 03/25/19 12:36 No stones, (+)bacteria in urine, will discharge with a 3rd gen cephalosporin and PMD follow up Return for worsening/concerning symptoms Pt verbalizes understanding and agrees with plan *DC/Admit/Observation/Transfer Diagnosis at time of Disposition: Left flank pain, Pyelonephritis - Discharge Dispostion Disposition: HOME Condition at time of disposition: Stable - Prescriptions Prescriptions: Cefpodoxime Proxetil [Vantin -] 200 mg PO Q12H #20 tablet - Referrals Referrals: Nilson Xavier MD [Primary Care Provider] - - Patient Instructions Printed Discharge Instructions: DI for Kidney Infection Additional Instructions: Please take antibiotics as prescribed. Return for worsening/concerning symptoms. Drink lots of fluids. - Post Discharge Activity Forms/Work/School Notes: Back to Work
[2019-03-25] MEDS ORDERED: KETOROLAC TROMETHAMINE 15 MG/ML VIAL ONE (08:33)
[2019-03-25 08:47] LABS: EOS % 0.1 % (0-4.5); HEMOGLOBIN 14.3 GM/dL (10.7-15.3); LYMPH % 25.7 % (8-40); MCH 32.4 pg (25.7-33.7); MEAN CELL VOLUME 92.5 fl (80-96); MEAN PLT VOLUME 7.4 fl (7.5-11.1); MONO % 6.4 % (3.8-10.2); NEUT % 66.8 % (42.8-82.8); PLATELET COUNT 264 K/MM3 (134-434); RBC 4.43 M/mm3 (3.60-5.2); RDW 12.8 % (11.6-15.6); WHITE BLOOD COUNT 6.8 K/mm3 (4.0-10.0)
[2019-03-25 09:23] LABS: INR 0.93 (0.83-1.09)
[2019-03-25 09:26] LABS: ALBUMIN 3.9 g/dl (3.4-5.0); BLOOD UREA NITROGEN 12.4 mg/dL (7-18); CALCIUM 8.8 mg/dL (8.5-10.1); CREATININE 0.7 mg/dL (0.55-1.3); POTASSIUM 4.1 mmol/L (3.5-5.1)
[2019-03-25 09:27] LABS: EPI CELLS 7.8 /HPF (0-5/HPF); HYALINE CASTS 8 /lpf (0-8); PH,URINE 5.5 (5.0-8.0); URINE APPEARANCE CLOUDY; URINE BACTERIA 70.6 /hpf (NEGATIVE); URINE BILIRUBIN NEGATIVE (NEGATIVE); URINE COLOR YELLOW; URINE GLUCOSE (UA) NEGATIVE (NEGATIVE); URINE KETONE NEGATIVE (NEGATIVE); URINE LEUK ESTERASE 1+ (NEGATIVE); URINE NITRITE NEGATIVE (NEGATIVE); URINE PROTEIN NEGATIVE (NEGATIVE); URINE RBC 4 /hpf (0-4); URINE UROBILINOGEN 0.2 mg/dL (0.2-1.0); URINE WBC 7 /hpf (0-5)
--- NOTE | 2019-03-25 09:45 | PDOC ---
*Physical Exam - Vital Signs Last Vital Signs Temp Pulse Resp BP Pulse Ox 97.9 F 75 18 141/83 97 03/25/19 07:13 03/25/19 07:13 03/25/19 07:13 03/25/19 07:13 03/25/19 07:13 ED Treatment Course - LABORATORY CBC & Chemistry Diagram: 03/25/19 08:30 03/25/19 08:30 - ADDITIONAL ORDERS Additional order review: Laboratory Results 03/25/19 03/25/19 03/25/19 08:53 08:34 08:30 PT with INR INR Sodium Potassium Chloride Carbon Dioxide Anion Gap BUN Creatinine Est GFR (CKD-EPI)AfAm Est GFR (CKD-EPI)NonAf Random Glucose Calcium Total Bilirubin AST ALT Alkaline Phosphatase Total Protein Albumin Lipase Serum , Qual Negative Urine Color Yellow Urine Appearance Cloudy Urine pH 5.5 Ur Specific [place] 1.032 Urine Protein Negative Urine Glucose (UA) Negative Urine Ketones Negative Urine Blood Trace Urine Nitrite Negative Urine Bilirubin Negative Urine Urobilinogen 0.2 Ur Leukocyte Esterase 1+ H Urine WBC (Auto) 7 Urine RBC (Auto) 4 Urine Casts (Auto) 8 U Epithel Cells (Auto) 7.8 Urine Bacteria (Auto) 70.6 Blood Type O NEGATIVE Antibody Screen Negative 03/25/19 03/25/19 08:30 08:30 PT with INR 11.00 INR 0.93 Sodium 140 Potassium 4.1 Chloride 108 H Carbon Dioxide 24 Anion Gap 8 BUN 12.4 Creatinine 0.7 Est GFR (CKD-EPI)AfAm 120.43 Est GFR (CKD-EPI)NonAf 103.90 Random Glucose 88 Calcium 8.8 Total Bilirubin 1.0 AST 21 ALT 25 Alkaline Phosphatase 70 Total Protein 7.0 Albumin 3.9 Lipase 50 L Serum , Qual Urine Color Urine Appearance Urine pH Ur Specific [place] Urine Protein Urine Glucose (UA) Urine Ketones Urine Blood Urine Nitrite Urine Bilirubin Urine Urobilinogen Ur Leukocyte Esterase Urine WBC (Auto) Urine RBC (Auto) Urine Casts (Auto) U Epithel Cells (Auto) Urine Bacteria (Auto) Blood Type Antibody Screen 03/25/19 08:30 RBC 4.43 MCV 92.5 MCHC 35.0 RDW 12.8 MPV 7.4 L Neutrophils % 66.8 Lymphocytes % 25.7 D Monocytes % 6.4 Eosinophils % 0.1 Basophils % 1.0 - Medications Given in the ED: ED Medications Discontinued Medications Generic Name Dose Route Start Last Admin Trade Name Leandra PRN Reason Stop Dose Admin Sodium Chloride 1,000 mls @ 1,000 mls/hr 03/25/19 07:47 03/25/19 08:32 Normal Saline - IV 03/25/19 08:46 1,000 mls/hr ASDIR STA Administration Ketorolac Tromethamine 15 mg 03/25/19 07:49 03/25/19 08:40 Toradol Injection - IVPUSH 03/25/19 07:50 15 mg ONCE ONE Administration Medical Decision Making - Medical Decision Making 03/25/19 09:41 Patient seen and evaluated with the nurse practitioner. I agree with the overall evaluation, assessment, and management with the following summary of visit: 48y/o F h/o kidney stones p/w acute L flank pain and urinary frequency/urgency. no f/c. vss, urine negative agree with exam, + cvat presentation seems most c/w renal colic exacerbation, r/o infection or colitis given diarrhea. labs, ua ctap pain control reassess *DC/Admit/Observation/Transfer Diagnosis at time of Disposition: Left flank pain - Referrals Referrals: Nilson Xavier MD [Primary Care Provider] - - Patient Instructions - Post Discharge Activity
== END 2019-03-25 12:50 | disposition home or self-care (01) ==
LOC: JER 06:42
PROC: 3E0333Z Introduction of Anti-inflammatory into Peripheral Vein, Percutaneous Approach (ICD-10-PCS; principal; 2019-03-25)
PROC: 3E0337Z Introduction of Electrolytic and Water Balance Substance into Peripheral Vein, Percutaneous Approach (ICD-10-PCS; 2019-03-25)
DX: R10.32 Left lower quadrant pain (principal); N12 Tubulo-interstitial nephritis, not specified as acute or chronic; Z87.891 Personal history of nicotine dependence; I10 Essential (primary) hypertension; E03.9 Hypothyroidism, unspecified
CPT/HCPCS: 36415; 74176-TC; 80053; 81003; 83690; 84703; 85025; 85610; 86850; 86900; 86901; 87086; 99283-25; J7030

== ENCOUNTER 2019-07-28 08:02 | Emergency (ER) | payer OTHER ==
[2019-07-28 08:11] VITALS: BP 135/87; PULSE 86; TEMP 98.4; BMI 39.9
[2019-07-28] MEDS ORDERED: guaiFENesin/CODEINE 10 ML UNIT-DOSE CUPS PO ONE (08:33)
[2019-07-28] MEDS ORDERED: guaiFENesin/CODEINE 5 ML UNIT-DOSE CUPS PO ONE (08:47)
--- NOTE | 2019-07-28 09:13 | PDOC ---
History of Present Illness - General Chief Complaint: Cold Symptoms Stated Complaint: COUGH Time Seen by Provider: 07/28/19 08:23 History Source: Patient - History of Present Illness Timing/Duration: reports: other Past History - Past Medical History Allergies/Adverse Reactions: Allergies Allergy/AdvReac Type Severity Reaction Status Date / Time aspirin Allergy Vomiting Verified 03/25/19 07:16 Home Medications: Ambulatory Orders Levothyroxine [Synthroid -] 150 mcg PO DAILY 02/08/17 Losartan Potassium 50 mg PO ASDIR 01/11/18 Topiramate [Topamax] 50 mg PO BID 05/01/18 Cefpodoxime Proxetil [Vantin -] 200 mg PO Q12H #20 tablet 03/25/19 Anemia: Yes COPD: No HTN: Yes Kidney Stones: Yes Thyroid Disease: Yes (Hypothyroid) - Surgical History Orthopedic Surgery: Yes (lt leg fib/tib fx) - Immunization History Immunization Up to Date: Yes - Psycho Social/Smoking Cessation Hx Smoking History: Never smoked Have you smoked in the past 12 months: No If you are a former smoker, when did you quit?: 20 years ago Information on smoking cessation initiated: No Hx Alcohol Use: No Drug/Substance Use Hx: No Substance Use Type: None Hx Substance Use Treatment: No Review of Systems - Review of Systems Constitutional: Yes: Malaise. No: Chills, Fever Respiratory: Yes: Cough. No: Shortness of Breath Cardiac (ROS): No: Chest Pain ABD/GI: No: Diarrhea, Nausea, Vomiting *Physical Exam - Vital Signs Last Vital Signs Temp Pulse Resp BP Pulse Ox 98.4 F 86 16 135/87 100 07/28/19 08:07 07/28/19 08:07 07/28/19 08:07 07/28/19 08:07 07/28/19 08:07 - Physical Exam General Appearance: Yes: Appropriately Dressed. No: Apparent Distress HEENT: positive: Normal ENT Inspection, Normal Voice, TMs Normal, Pharynx Normal. negative: Scleral Icterus (R), Scleral Icterus (L) Neck: positive: Supple Respiratory/Chest: positive: Lungs Clear, Normal Breath Sounds. negative: Respiratory Distress Cardiovascular: positive: Regular Rate, S1, S2 Integumentary: positive: Dry, Warm Neurologic: positive: Fully Oriented, Alert, Normal Mood/Affect ED Treatment Course - Medications Given in the ED: ED Medications Discontinued Medications Generic Name Dose Route Start Last Admin Trade Name Leandra PRN Reason Stop Dose Admin Guaifenesin/Codeine Phosphate 10 ml 07/28/19 08:33 07/28/19 08:48 Robitussin Ac - PO 07/28/19 08:34 10 ml ONCE ONE Administration Medical Decision Making - Medical Decision Making 07/28/19 09:12 48-year-old female no significant history here with malaise with body aches and cough for several days. No shortness of breath chest pain fever or chills see exam M/l viral URI, r/o flu Exam unremarkable 07/28/19 09:19 Patient reports that she started to experience some left-sided chest pain while in ED. No shortness of breath and no diaphoresis nausea or vomiting. No history of CAD. Will get EKG at this time 07/28/19 10:06 Flu negative. Patient stable for discharge at this time. No chest pain currently. Reasons to return discussed with patient Discharge - Discharge Information Problems reviewed: Yes Clinical Impression/Diagnosis: URI (upper respiratory infection) Qualifiers: URI type: unspecified viral URI Qualified Code(s): J06.9 - Acute upper respiratory infection, unspecified Condition: Good Disposition: HOME - Follow up/Referral - Patient Discharge Instructions Patient Printed Discharge Instructions: DI for Viral Upper Respiratory Infection -- Adult - Post Discharge Activity Work/Back to School Note: Back to Work
--- NOTE | 2019-07-29 11:55 | EKG ---
Test Reason : Blood Pressure : / mmHG Vent. Rate : 081 BPM Atrial Rate : 081 BPM P-R Int : 136 ms QRS Dur : 076 ms QT Int : 392 ms P-R-T Axes : 058 057 065 degrees QTc Int : 455 ms NORMAL SINUS RHYTHM NONSPECIFIC T WAVE ABNORMALITY ABNORMAL ECG WHEN COMPARED WITH ECG OF 16-SEP-2017 01:02, NO SIGNIFICANT CHANGE WAS FOUND Confirmed by DAKOTA BENAVIDES, EARNESTINE ([id number]) on 07/29/2019 11:55:19 AM Referred By: Confirmed By:EARNESTINE DUNCAN MD
== END 2019-07-28 10:23 | disposition home or self-care (01) ==
LOC: JERFT 08:02
DX: J06.9 Acute upper respiratory infection, unspecified (principal); Z88.8 Allergy status to other drugs, medicaments and biological substances
CPT/HCPCS: 87804; 93005; 93010; 99283-25

== ENCOUNTER 2020-06-18 09:41 | Emergency (ER) | payer OTHER ==
[2020-06-18 10:03] VITALS: BP 149/93; PULSE 117; TEMP 99; BMI 39.9
== END 2020-06-18 10:41 | disposition home or self-care (01) ==
LOC: JER 09:41
DX: U07.1 COVID-19 (principal)
CPT/HCPCS: 87804; 99283-25; C9803; U0003

== ENCOUNTER 2020-07-09 16:15 | Emergency (ER) | payer OTHER ==
[2020-07-09] MEDS ORDERED: morphine CARPU-JECT 2 MG/1 ML DISP.SYRIN IM ONE (17:02)
[2020-07-09 17:09] VITALS: BP 159/67; PULSE 89; TEMP 98.5; BMI 39.1
[2020-07-09] MEDS ORDERED: morphine SULFATE 4 MG/ML VIAL ONE (17:31)
== END 2020-07-09 19:47 | disposition home or self-care (01) ==
LOC: JER 16:15
PROC: 3E023NZ Introduction of Analgesics, Hypnotics, Sedatives into Muscle, Percutaneous Approach (ICD-10-PCS; principal; 2020-07-09)
DX: S00.83XA Contusion of other part of head, initial encounter (principal); S43.402A Unspecified sprain of left shoulder joint, initial encounter; S80.02XA Contusion of left knee, initial encounter; W19.XXXA Unspecified fall, initial encounter
CPT/HCPCS: 70450-TC; 70486-TC; 73030-TC-LT-FY; 73562-TC-LT-FY; 99285-25

== ENCOUNTER 2022-01-04 09:24 | Emergency (ER) | payer OTHER ==
[2022-01-04] MEDS ORDERED: ACETAMINOPHEN 1000 MG/100 ML BAG IVPB ONE (10:55)
[2022-01-04] MEDS ORDERED: METOCLOPRAMIDE HCL INJECTION 10 MG/2 ML VIAL IVPUSH ONE (10:55)
[2022-01-04] MEDS ORDERED: ACETAMINOPHEN INJECTION 100 ML IVPB ONE (11:17)
[2022-01-04] MEDS ORDERED: METOCLOPRAMIDE HCL INJECTION 10 MG/2 ML VIAL ONE (11:17)
[2022-01-04 11:28] VITALS: BP 136/75; PULSE 18; TEMP 98; BMI 39.9
[2022-01-04] MEDS ORDERED: MECLIZINE HCL 25 MG TABLET (FP) PO ONE (13:11)
[2022-01-04] MEDS ORDERED: MECLIZINE HCL 25 MG TABLET (FP) ONE (13:20)
== END 2022-01-04 14:44 | disposition home or self-care (01) ==
LOC: JER 09:24
PROC: 3E033GC Introduction of Other Therapeutic Substance into Peripheral Vein, Percutaneous Approach (ICD-10-PCS; principal; 2022-01-04)
DX: R51.9 Headache, unspecified (principal)
CPT/HCPCS: 99284-25

== ENCOUNTER 2022-10-19 17:31 | Emergency (ER) | payer OTHER ==
[2022-10-19 17:40] VITALS: BP 167/80; PULSE 81; RESP 18; TEMP 97.9; BMI 39.9
[2022-10-19] MEDS ORDERED: ACETAMINOPHEN 500 MG TABLET (FP) PO ONE (19:17)
[2022-10-19] MEDS ORDERED: ACETAMINOPHEN 500 MG TABLET (FP) ONE (19:28)
== END 2022-10-19 19:37 | disposition home or self-care (01) ==
LOC: JERFT 17:31 → JER 17:31 → JERFT 19:37
DX: M25.551 Pain in right hip (principal); M25.561 Pain in right knee; M25.531 Pain in right wrist; M54.50 Low back pain, unspecified; W18.30XA Fall on same level, unspecified, initial encounter
CPT/HCPCS: 72100-TC-FY; 73110-TC-RT-FY; 73502-TC-RT-FY; 73560-TC-RT-FY; 99285-25

== ENCOUNTER 2023-11-26 09:44 | Day surgery (SDC) | payer OTHER ==
[2023-11-17 10:50] VITALS: BMI 43.2
[2023-11-26 10:00] VITALS: RESP 19
[2023-11-26 11:48] VITALS: TEMP 97.1
[2023-11-26 11:58] VITALS: BP 116/78; PULSE 76
== END 2023-11-26 12:10 | disposition home or self-care (01) ==
LOC: FASU-ENDO 09:44
PROVIDERS: ATTEND Internal Medicine Gastroenterology
PROC: 0DBM8ZX Excision of Descending Colon, Via Natural or Artificial Opening Endoscopic, Diagnostic (ICD-10-PCS; principal; 2023-11-26 11:25)
DX: Z12.11 Encounter for screening for malignant neoplasm of colon (principal); D12.4 Benign neoplasm of descending colon; K64.1 Second degree hemorrhoids
CPT/HCPCS: 88305-TC

== ENCOUNTER 2024-01-21 10:12 | Day surgery (SDC) | payer OTHER ==
[2024-01-14 14:34] VITALS: BMI 42.4
[2024-01-21 10:31] VITALS: RESP 19
[2024-01-21 12:05] VITALS: TEMP 97.3
[2024-01-21 12:11] VITALS: BP 102/68; PULSE 72
== END 2024-01-21 12:05 | disposition home or self-care (01) ==
LOC: FASU-ENDO 10:12
PROVIDERS: ATTEND Internal Medicine Gastroenterology
PROC: 0DB68ZX Excision of Stomach, Via Natural or Artificial Opening Endoscopic, Diagnostic (ICD-10-PCS; 2024-01-21)
PROC: 0DB48ZX Excision of Esophagogastric Junction, Via Natural or Artificial Opening Endoscopic, Diagnostic (ICD-10-PCS; 2024-01-21)
PROC: 0DB98ZX Excision of Duodenum, Via Natural or Artificial Opening Endoscopic, Diagnostic (ICD-10-PCS; principal; 2024-01-21 11:34)
DX: K29.50 Unspecified chronic gastritis without bleeding (principal); K20.90 Esophagitis, unspecified without bleeding; R10.13 Epigastric pain
CPT/HCPCS: 88305-TC; 88342-TC

== ENCOUNTER 2024-02-11 08:59 | Emergency (ER) | payer OTHER ==
[2024-02-11 09:09] VITALS: TEMP 98.3; BMI 42.9
[2024-02-11] MEDS ORDERED: KETOROLAC TROMETHAMINE 30 MG/1 ML VIAL ONE (11:29)
[2024-02-11] MEDS: KETOROLAC TROMETHAMINE 30 MG/1 ML VIAL IM ONE (11:33)
[2024-02-11 12:25] VITALS: BP 130/69; PULSE 77; RESP 18
== END 2024-02-11 13:22 | disposition home or self-care (01) ==
LOC: JER 08:59
PROC: 3E0233Z Introduction of Anti-inflammatory into Muscle, Percutaneous Approach (ICD-10-PCS; principal; 2024-02-11)
DX: M54.50 Low back pain, unspecified (principal); M25.562 Pain in left knee; M25.521 Pain in right elbow; W18.39XA Other fall on same level, initial encounter
CPT/HCPCS: 70450-TC; 72125-TC; 72131-TC; 72170-TC-FY; 73070-TC-RT-FY; 73562-TC-LT-FY; 99284-25